=== PATIENT | male | born 1940 | race Caucasian/White ===

== ENCOUNTER 2018-04-08 19:40 | Emergency (ER) | payer OTHER ==
[~2018-04-08] VITALS: Ht 180.3 cm; Wt 89.4 kg
[2018-04-08] MEDS ORDERED: VASOTEC5 MG (20:08)
[2018-04-08] MEDS ORDERED: TENORMIN50 M1 (20:08)
[2018-04-09] MEDS ORDERED: MUCINEX1200 MG PO (03:44)
[2018-04-09] MEDS ORDERED: XOPENEX HFA15 GM IH (03:44)
[2018-04-09] MEDS ORDERED: LEVAQUIN750 MG PO (03:44)
== END 2018-04-09 04:01 | disposition home or self-care (01) ==
LOC: ER 19:40
DX: J40 Bronchitis, not specified as acute or chronic (principal)

== ENCOUNTER 2020-12-17 10:15 | Outpatient (CLI) | payer OTHER ==
[~2020-12-17 10:15] MED LIST: LEVAQUIN750 MG PO; MUCINEX1200 MG PO; TENORMIN50 M1; VASOTEC5 MG; XOPENEX HFA15 GM IH
== END 2020-12-17 10:16 | disposition home or self-care (01) ==
LOC: NUCLEAR 10:15
PROVIDERS: ATTEND Internal Medicine
DX: I25.10 Atherosclerotic heart disease of native coronary artery without angina pectoris (principal); I65.23 Occlusion and stenosis of bilateral carotid arteries

== ENCOUNTER 2021-01-02 15:32 | Outpatient (CLI) | payer OTHER | END 2021-01-02 15:47 | disposition home or self-care (01) | LOC: TOM 15:32 | PROVIDERS: ATTEND Internal Medicine | DX: G46.4 Cerebellar stroke syndrome (principal); G44.221 Chronic tension-type headache, intractable ==

== ENCOUNTER 2021-01-28 14:29 | Outpatient (CLI) | payer OTHER | END 2021-01-28 14:41 | disposition home or self-care (01) | LOC: TOM 14:29 | PROVIDERS: ATTEND Internal Medicine | DX: J01.41 Acute recurrent pansinusitis (principal) ==

== ENCOUNTER 2021-04-30 14:53 | Outpatient (CLI) | payer OTHER | END 2021-04-30 15:01 | disposition home or self-care (01) | LOC: TOM 14:53 | PROVIDERS: ATTEND Internal Medicine | DX: J32.0 Chronic maxillary sinusitis (principal) ==

== ENCOUNTER 2021-07-24 15:08 | Outpatient (CLI) | payer OTHER ==
[~2021-07-24 15:08] MED LIST changes: +BUDESONIDE0.5 MG/2 M IH; +ELIQUIS2.5 MG PO; +HYDROCHLORIC AC25 ML MC; +MEDROLPACK PO; +MUCINEX DM ER1 EAC1 PO; +XOPENEX CO1.25 MG/0. IH; +ZOLOFT20 MG/1 ML
== END 2021-07-24 15:15 | disposition home or self-care (01) ==
LOC: RAD 15:08
PROVIDERS: ATTEND Internal Medicine
DX: M25.551 Pain in right hip (principal); M25.552 Pain in left hip

== ENCOUNTER 2021-08-03 14:49 | Outpatient (CLI) | payer OTHER | END 2021-08-03 14:59 | disposition home or self-care (01) | LOC: TOM 14:49 | PROVIDERS: ATTEND Internal Medicine | DX: M54.50 Low back pain, unspecified (principal) ==

== ENCOUNTER 2022-12-29 11:40 | Outpatient (CLI) | payer OTHER | END 2022-12-29 11:46 | disposition home or self-care (01) | LOC: TOM 11:40 | PROVIDERS: ATTEND Internal Medicine | DX: R10.2 Pelvic and perineal pain (principal) ==